=== PATIENT | male | born 1945 | race Caucasian/White ===

== ENCOUNTER 2016-12-05 14:13 | Emergency (ER) | payer MEDICARE ==
[2016-12-05 14:33] VITALS: BP 127/68
--- NOTE | 2016-12-05 15:07 | RAD ---
INDICATION: Trauma anterior thigh pain and ecchymoses. TECHNIQUE: 2 views of the right femur were obtained. FINDINGS: The bones are normal alignment. No fracture is seen. IMPRESSION: NO EVIDENCE FOR FRACTURE.
--- NOTE | 2016-12-05 15:09 | RAD ---
INDICATION: Right lower leg injury. TECHNIQUE: 2 views of the right lower leg were obtained. FINDINGS: There is soft tissue swelling anterior to the proximal in mid tibia. No fracture is seen. IMPRESSION: SOFT TISSUE SWELLING, NO FRACTURE IS SEEN.
--- NOTE | 2016-12-05 15:12 | RAD ---
INDICATION: Right hip injury. COMPARISON: There are no prior studies available for comparison. TECHNIQUE: An AP view of the pelvis and frontal and lateral views of the right hip were obtained. FINDINGS: The bones are in normal alignment. No fracture is seen. 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 There are several metallic densities which project over the pelvis. IMPRESSION: NO EVIDENCE FOR FRACTURE, IF THE PATIENT'S SYMPTOMS PERSIST RECOMMEND FOLLOW-UP IMAGING.
--- NOTE | 2016-12-05 15:25 | UC ---
Minor Trauma HPI - HPI Summary HPI Summary: WAS HIKING IN SPALDING TWIST AND FALL ONTO GROUND INJURING RIGHT THIGH. ON BEGAN TO HAVE BRUISING (MEDIAL THIGH) AND PAIN (ANTERIOR THIGH) SINCE INJURY HAS ALSO DEVELOPED SELLING AND BRUISING IN RIGHT (MEDIAL) ANKLE WITH NO PAIN. ON NO BLOOD THINNERS. NO HISTORY OR FAMILY HISTORY OF BLEEDING DISORDERS. - History of Current Complaint Chief Complaint: UCLowerExtremity Stated Complaint: S/P FALL RIGHT LEG PAIN Time Seen by Provider: 12/05/16 14:32 Hx Obtained From: Patient Onset/Duration: Sudden Onset, Lasting Weeks, Still Present Onset Of Pain: Post Accident Severity Initially: Moderate Severity Currently: Moderate Mechanism Of Injury: Fall From A Standing Position, Twisted Aggravating Factor(s): Ambulation, Movement, Weight Bearing Alleviating Factor(s): Nothing Associated Signs And Symptoms: Positive: Ecchymosis, Swelling - Risk Factors Penetrating Injury Risk Factors: Negative - Allergies/Home Medications Allergies/Adverse Reactions: Allergies Allergy/AdvReac Type Severity Reaction Status Date / Time No Known Allergies Allergy Verified 12/05/16 14:26 Home Medications: Home Medications Lisinopril TAB* [Prinivil TAB*] 10 mg PO DAILY 12/05/16 [History Confirmed 12/05] Pravastatin Sodium [Pravachol] 40 mg PO DAILY 12/05/16 [History Confirmed ] PMH/Surg Hx/FS Hx/Imm Hx Previously Healthy: Yes - Surgical History Surgical History: Yes Surgery Procedure, Year, and Place: colon resection - Family History Known Family History: Negative: Blood Disorder - Social History Occupation: Employed Part-time, Retired Lives: With Family Alcohol Use: Occasionally Substance Use Type: None Smoking Status (MU): Never Smoked Tobacco Review of Systems Constitutional: Negative Skin: Bruising Eyes: Negative ENT: Negative Respiratory: Negative Cardiovascular: Negative Gastrointestinal: Negative Genitourinary: Negative Motor: Negative Neurovascular: Negative Musculoskeletal: Myalgia - RIGHT ANTERIOR LEG Neurological: Negative Psychological: Negative All Other Systems Reviewed And Are Negative: Yes Physical Exam Triage Information Reviewed: Yes Appearance: Well-Appearing, Well-Nourished, Pain Distress - MILD Vital Signs: Initial Vital Signs Temp 98.8 F 12/05/16 14:27 Pulse 86 12/05/16 14:27 Resp 16 12/05/16 14:27 BP 127/68 08/28/17 14:27 Pulse Ox 95 12/05/16 14:27 Vital Signs Reviewed: Yes Eye Exam: Normal ENT Exam: Normal ENT: Positive: Normal ENT inspection Dental Exam: Normal Neck exam: Normal Respiratory Exam: Normal Respiratory: Positive: Chest non-tender, Lungs clear, Normal breath sounds, No respiratory distress, No accessory muscle use Cardiovascular Exam: Normal Cardiovascular: Positive: RRR, No Murmur, Pulses Normal Abdominal Exam: Normal Musculoskeletal: Positive: ROM Intact, Strength Limited @ - ANTERIOR RIGHT THIGH , Edema @ - RIGHT ANKLE RIGHT MEDIA ANKLE Neurological Exam: Normal Psychological Exam: Normal Skin: Positive: Other - RIGHT MEDIAL & ANTERIOR THIGH ECCYMOSES, RIGHT MEDIAL ANKLE EDEMA AND ECCYMOSES Minor Trauma Course/Dx - Course Course Of Treatment: SUSPECT MUSCLE &/OR TENDON DAMAGE TO RIGHT ANTERIOR THIGH - Differential Dx/Diagnosis Differential Diagnosis/HQI/PQRI: Sprain, Strain Provider Diagnoses: RIGHT THIGH MUSCLE INJURY; ECCYMOSES RIGHT LEG Discharge - Discharge Plan Condition: Stable Disposition: HOME Patient Education Materials: Muscle Strain (ED), Non Weight Bearing Activity ( ED), Ecchymosis (ED) Referrals: Leroy Hernandez MD [Primary Care Provider] - Eren Huff MD [Medical Doctor] - As Soon As Possible
== END 2016-12-05 15:34 | disposition home or self-care (01) ==
LOC: UCCORT 14:13
DX: S79.921A Unspecified injury of right thigh, initial encounter (principal); S70.11XA Contusion of right thigh, initial encounter; S90.01XA Contusion of right ankle, initial encounter; W19.XXXA Unspecified fall, initial encounter; Y93.01 Activity, walking, marching and hiking; Y92.89 Other specified places as the place of occurrence of the external cause
CPT/HCPCS: 99202; G0463